=== PATIENT | female | born 1995 | race Caucasian/White ===

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

== ENCOUNTER 2017-06-05 14:30 | Emergency (ER) | payer OTHER ==
[2017-06-05 14:44] VITALS: BP 98/60; PULSE 79; RESP 16; TEMP 98.4; O2SAT 100
--- NOTE | 2017-06-05 15:06 | EDPHY ---
H & P Stated Complaint: Pt. states erythema,drainage and pruitic od since last noc Time Seen by Provider: 06/05/17 14:45 HPI/ROS: CHIEF COMPLAINT: Right eye redness HISTORY OF PRESENT ILLNESS: This is a 22-year-old female who developed right eye redness, itchiness, and drainage last night. This has persisted and worsened. Eye was matted close this morning. She is not aware of any change in vision but is unable to use her contact lens which means that her vision is poor because it is not corrected. She has not had fever. She has had slight nasal congestion, no cough, ear pain, sore throat, or neck pain. No ill contacts. REVIEW OF SYSTEMS: A ten point review of systems was performed and is negative with the exception of the items mentioned in the HPI. Past medical history: 1. Attention deficit disorder 2. Depression Social history: She works at a [employer]. She does not use tobacco products. General Appearance: Alert. Vital signs reviewed. Visual Acuity: noted from Nurse's notes. Pupils:equal round and reactive to light, EOMI Lids: no edema or swelling, no foreign body with eyelid eversion Skin: no proptosis, no periorbital erythema or swelling, no vesicles Conjunctivae: Right eye with diffuse injection, watery discharge Cornea: exam with fluorescein shows no corneal abrasion Anterior chamber:normal, no hyphema or hypopyon, no dendritic branching ENT, Mouth: Mucous membranes are moist, no oropharyngeal erythema or edema. Neck: Mild anterior cervical lymphadenopathy, prominent on the right, supple. Respiratory: Lungs are clear to auscultation; no wheezes, rales, or rhonchi. Cardiovascular: Regular rate and rhythm; no murmur, rub, or gallop. Skin: Warm and dry, no rashes on exposed skin, normal color. Specifically, no facial rashes. Neurological: Alert and oriented. Moving all four extremities easily and equally. Facial sensation intact to light touch. Psychiatric: Normal affect. - Personal History LMP (Females 10-55): Extended Cycle BCP/Inj Tetanus Vaccine Date: within 10 yrs - Medical/Surgical History Hx Asthma: No Hx Chronic Respiratory Disease: No Hx Diabetes: No Hx Cardiac Disease: No Hx Renal Disease: No Hx Cirrhosis: No Hx Alcoholism: No Hx HIV/AIDS: No Hx Splenectomy or Spleen Trauma: No Other PMH: Med hx-depression,adhd. Surg-none - Social History Smoking Status: Never smoked Constitutional: Initial Vital Signs Temperature (C) 36.9 C 06/05/17 14:41 Heart Rate 79 06/05/17 14:41 Respiratory Rate 16 06/05/17 14:41 Blood Pressure 98/60 L 06/05/17 14:41 O2 Sat (%) 100 06/05/17 14:41 O2 Delivery Mode Room Air Allergies/Adverse Reactions: amoxicillin Allergy (Verified 06/05/17 14:39) Home Medications: Medication Instructions Recorded Abilify 12/27/16 Adderall 10 MG (*) 12/27/16 VYVANSE 12/27/16 Zoloft 50mg (*) 12/27/16 Ofloxacin 0.3% [Ocuflox 0.3%] 1 drops RTEYE QID #1 opht.btl 06/05/17 Medical Decision Making ED Course/Re-evaluation: Right eye with conjunctival injection since last night. Exam consistent with conjunctivitis. She is being started on antibiotic eyedrops. Danger signs are reviewed with her. I do not find evidence of retained foreign body, corneal abrasion. Left eye looks fine. I do not Differential Diagnosis: I considered a differential diagnosis that includes but is not limited to retained foreign body, corneal abrasion, iritis, keratitis, globe injury, conjunctivitis. Departure - Departure Disposition: Home, Routine, Self-Care Clinical Impression: Acute conjunctivitis of right eye Qualifiers: Acute conjunctivitis type: unspecified Qualified Code(s): H10.31 - Unspecified acute conjunctivitis, right eye Condition: Good Instructions: Conjunctivitis (ED) Additional Instructions: Do not put a contact lens into your right eye until it is completely clear. Use the antibiotic eye drops as prescribed. I recommend follow up with your eye doctor--to insure complete recovery and have your prescription checked. I am giving you a referral to the supervising bailiff control panel builder for [facility] in case you would like to see her. Referrals: Abbey Ly MD [Non Staff Provider ()] - As per Instructions Prescriptions: Ofloxacin 0.3% [Ocuflox 0.3%] 1 drops RTEYE QID #1 opht.btl
== END 2017-06-05 15:15 | disposition home or self-care (01) ==
LOC: CED 14:30
DX: H10.31 Unspecified acute conjunctivitis, right eye (principal)